=== PATIENT | male | born 1990 | race Caucasian/White ===

== ENCOUNTER 2021-11-16 00:21 | Emergency (ER) | payer MEDICAID ==
[2021-11-16] MEDS ORDERED: Acetaminophen/HYDROcodone 325-10 MG Tab PO ONE (01:06)
== END 2021-11-16 02:40 | disposition home or self-care (01) ==
LOC: DL.ED 00:21
DX: S00.83XA Contusion of other part of head, initial encounter (principal); Z72.0 Tobacco use; Y04.0XXA Assault by unarmed brawl or fight, initial encounter
CPT/HCPCS: 70486; 99282; 99284-25; A9270-GY